=== PATIENT | female | born 1960 | race Caucasian/White ===

== ENCOUNTER → 2017-03-01 | Outpatient (CLI) | payer OTHER ==
[2015-01-25 14:05] VITALS: BP 139/67
[~2017-03-01] MED LIST: ACET500T68 PO; CETI10TA22 PO; CHOL5000 PO; FAMO20TA5 PO; FOLI1TAB4 PO; GUAI-107 PO; HYDR-2679 PO; NAPR250T2 PO; NAPR375T3 PO; NORE5TAB3 PO; ONDA4TAB11 PO; PROG100C15 PO; TRIA1CAP3 PO; [UNRECOGNIZED DRUG - CODE] PO
--- NOTE | 2017-03-03 17:32 | CARD ---
APPROVED REPORT EXAM: Two-dimensional and M-mode echocardiogram with Doppler and color Doppler. Other Information Quality : Average Rhythm : NSR INDICATION Atrial Fibrillation 2D DIMENSIONS RVDd3.1 (2.9-3.5cm)Left Atrium(2D)3.1 (1.6-4.0cm) IVSd1.0 (0.7-1.1cm)Aortic Root(2D)2.7 (2.0-3.7cm) LVDd4.6 (3.9-5.9cm)LVOT Diameter2.0 (1.8-2.4cm) PWd1.0 (0.7-1.1cm)LVDs3.1 (2.5-4.0cm) FS (%) 29.9 %SV60.2 ml LVEF(%)60.4 (>50%) Aortic Valve AoV Peak Elijah.90.0cm/sAoV VTI16.1cm AO Peak GR.3.2mmHgLVOT Peak Elijah.96.0cm/s LVOT VTI 18.32cmAO Mean GR.2mmHg LIOR (VMAX)3.63xo3LMP (VTI)3.65cm2 Mitral Valve MV E Dezindrt93.5cm/sMV DECEL NJVV230dd MV A Uymgvitp69.7cm/sMV E Mean Gr.1mmHg MV QDC02wmG/A Ratio1.2 MV A Djwvkuiq689ucUHQ (PHT)4.51cm2 TDI E/Lateral E'4.0E/Medial E'5.1 Pulmonary Valve PV Peak Rkflcfnb95.2cm/sPV Peak Grad.2mmHg RVOT VTI12.2cm Tricuspid Valve TR P. Iizttqah559ry/sRAP GNKVHYBT7dtJm TR Peak Gr.17quOhLVHD57ycMi Pulmonary Vein S1 Mdqbeuem88.8cm/sD2 Eghkiijt24.1cm/s LEFT VENTRICLE The left ventricle is normal size. There is normal left ventricular wall thickness. Left ventricle sy stolic function is normal. The Ejection Fraction is 55-60%. There is normal LV segmental wall motion. The left ventricular diastolic function and filling is normal for age. There is no ventricular septa l defect visualized. RIGHT VENTRICLE The right ventricle is normal size. The right ventricular systolic function is normal. ATRIA The left atrium size is normal. The right atrium size is normal. The interatrial septum is intact wit h no evidence for an atrial septal defect or patent foramen ovale as noted on 2-D or Doppler imaging. AORTIC VALVE The aortic valve is normal in structure and function. The aortic valve is trileaflet. Doppler and Col or Flow revealed no significant aortic regurgitation. There is no significant aortic valvular stenosi s. MITRAL VALVE The mitral valve leaflets are thickened. A slight mitral valve prolapse is present of the anterior mi tral valve leaflet. There is no mitral valve stenosis. Doppler and Color Flow revealed no mitral valv e regurgitation noted. TRICUSPID VALVE The tricuspid valve is normal in structure and function. Doppler and Color Flow revealed trace tricus pid regurgitation. The PA pressure was estimated at 16 mmHg. There is no tricuspid valve stenosis. PULMONIC VALVE The pulmonic valve is not well visualized. Doppler and Color Flow revealed no pulmonic valvular regur gitation. There is no pulmonic valvular stenosis. GREAT VESSELS The aortic root is normal in size. Normal pulmonary venous flow (Doppler). The IVC is normal in size and collapses >50% with inspiration. PERICARDIAL EFFUSION There is no evidence of significant pericardial effusion. Critical Notification Critical Value: No <Conclusion> Left ventricle systolic function is normal. The Ejection Fraction is 55-60%. There is normal LV segmental wall motion. Doppler and Color Flow revealed trace tricuspid regurgitation. The PA pressure was estimated at 16 mmHg. There is no evidence of significant pericardial effusion.
== END | disposition home or self-care (01) ==
LOC: ECHO 10:01
PROVIDERS: ATTEND Internal Medicine Cardiovascular Disease
DX: I07.1 Rheumatic tricuspid insufficiency (principal)
CPT/HCPCS: 93306

== ENCOUNTER → 2017-04-25 | Outpatient (CLI) | payer OTHER ==
[2015-01-25 14:05] VITALS: BP 139/67
[~2017-04-25] MED LIST changes: -GUAI-107 PO; +GUAI-108 PO; +NAPR-695 PO; -NAPR250T2 PO; +NAPR250T6 PO; -NAPR375T3 PO
--- NOTE | 2017-04-25 09:59 | RAD ---
MRCP, 04/25/2017: History: Pancreatitis Imaging was performed in axial and coronal planes utilizing a variety of sequences including T2 weighted, fat suppressed T2 weighted and opposed phase gradient echo sequences. Heavily T2 weighted 2-D and 3-D MRCP sequences were also performed with 3-D reconstructions produced. The gallbladder is surgically absent. No bile duct dilatation is seen. No filling defect is seen in the common duct to suggest a calculus. The pancreatic ducts are of normal caliber. There is a separate small pancreatic duct in the posterior aspect of the pancreatic head inserted into the distal common bile duct at the ampulla. The main pancreatic duct appears to have a separate connection to the duodenum. The appearance is that of pancreas divisum. No pancreatic mass is evident. There is a 13 mm cyst in the anterior aspect of the left lobe of the liver. The liver is otherwise unremarkable. IMPRESSION: 1. Status post cholecystectomy. 2. No biliary tract abnormality is detected. 3. Pancreas divisum. 4. Small hepatic cyst.
== END | disposition home or self-care (01) ==
LOC: MRI 08:23
PROVIDERS: ATTEND Internal Medicine Gastroenterology
DX: K85.90 Acute pancreatitis without necrosis or infection, unspecified (principal); Z90.49 Acquired absence of other specified parts of digestive tract; K76.89 Other specified diseases of liver
CPT/HCPCS: 74181

== ENCOUNTER → 2017-05-21 | Day surgery (SDC) | payer OTHER ==
[~2017-05-21] MED LIST changes: +DILT120C2 PO; +IV RINGERS,LACTATED 1000ML 1,000 ML IV SCH; +LIDOCAINE 1% PF 2 ML VIAL. ID PRN; +LIDOCAINE 2% PF Vial for OR 5 ML VIAL. ONE; +MIDAZOLAM HCL/PF 2 MG/2 ML VIAL. IV PRN; +PROPOFOL 20 ML IV ONE; +PROPOFOL 40 ML IV ONE; +fentaNYL PF VIAL 100 MCG/2 ML VIAL IV PRN
[2017-05-21 17:15] VITALS: BP 134/74
== END | disposition home or self-care (01) ==
LOC: ENDOS 15:21
PROVIDERS: ATTEND Internal Medicine Gastroenterology
DX: Z12.11 Encounter for screening for malignant neoplasm of colon (principal); K57.30 Diverticulosis of large intestine without perforation or abscess without bleeding; K64.0 First degree hemorrhoids; K29.50 Unspecified chronic gastritis without bleeding; I48.91 Unspecified atrial fibrillation; Z90.49 Acquired absence of other specified parts of digestive tract; Z88.0 Allergy status to penicillin; Z88.2 Allergy status to sulfonamides; Z88.8 Allergy status to other drugs, medicaments and biological substances; Z91.040 Latex allergy status
CPT/HCPCS: 43235; 45378; J2704; J2001

== ENCOUNTER → 2017-11-06 | Outpatient (CLI) | payer OTHER | END | disposition home or self-care (01) | LOC: KCIC MRI 10:57 | DX: M48.061 Spinal stenosis, lumbar region without neurogenic claudication (principal); M25.78 Osteophyte, vertebrae | CPT/HCPCS: 72148; 72195 ==

== ENCOUNTER → 2019-01-22 | Outpatient (CLI) | payer OTHER ==
[2017-05-21 17:15] VITALS: BP 134/74
[~2019-01-22] MED LIST changes: -IV RINGERS,LACTATED 1000ML 1,000 ML IV SCH; -LIDOCAINE 1% PF 2 ML VIAL. ID PRN; -LIDOCAINE 2% PF Vial for OR 5 ML VIAL. ONE; -MIDAZOLAM HCL/PF 2 MG/2 ML VIAL. IV PRN; -PROPOFOL 20 ML IV ONE; -PROPOFOL 40 ML IV ONE; -fentaNYL PF VIAL 100 MCG/2 ML VIAL IV PRN
--- NOTE | 2019-01-22 13:42 | KCIC ---
MRI of the brain without contrast 01/22/2019 Clinical History: Essential tremor. Increasing headaches and hand tremors. Technique: Unenhanced T1-weighted sagittal and axial, T2-weighted axial and coronal and FLAIR, gradient echo and diffusion-weighted axial images of the brain were obtained. Findings: Comparison is made to patient's CT scan of the head dated 03/05/2018. The ventricles and sulci are within normal limits in size and configuration. No area of significant abnormal signal intensity is seen involving the brain parenchyma. No extra-axial fluid collection is seen. There is no MRI evidence of acute ischemia/infarction. Mild mucosal thickening in seen scattered throughout the paranasal sinuses. A 8 mm mucous retention cyst is seen involving the right maxillary sinus. Normal flow voids are seen within the major vascular structures surrounding the brain parenchyma. Impression: 1. Negative MRI of the brain. 2. Mild paranasal sinus and mastoid disease. Electronically signed by: Abiodun Miller MD (01/22/2019 1:39 PM) [facility]
== END | disposition home or self-care (01) ==
LOC: KCIC MRI 09:25
PROVIDERS: ATTEND Psychiatry & Neurology Neurology with Special Qualifications in Child Neurology
DX: J34.1 Cyst and mucocele of nose and nasal sinus (principal)
CPT/HCPCS: 70551

== ENCOUNTER → 2019-08-26 | Outpatient (CLI) | payer OTHER ==
[2017-05-21 17:15] VITALS: BP 134/74
[~2019-08-26] MED LIST changes: -CETI10TA22 PO; +CETI10TA24 PO; +ONDA-84 PO; -ONDA4TAB11 PO; +REGADENOSON 0.4 MG/5 ML DISP.SYRIN. IV ONE
--- NOTE | 2019-08-26 14:41 | RAD ---
MR#: [id number] Date of Study: 08/26/2019 Ordering Physician: ALEISHA INTERIANO, Referring Physician: YARIEL ROSENTHAL Tech: SONDRA Irving, ARRT (R) (N) APPROVED REPORT Test Type: Exercise Stress Nurse/Tech: Luke Park RN Test Indications: chest pain Cardiac History: clean cath 2004, HTN Medications: See Electronic Medical Record Medical History: See Electronic Medical Record Resting ECG: SR Resting Heart Rate: 73 bpm Resting Blood Pressure: 112/65mmHg Pretest Chest Pain: None Nurse/Tech Notes Lungs CTA, S1S2 Consent: The procedure was explained to the patient in lay terms. Informed consent was witnessed. Etienne eout was entered into [employer]. History and Stress Test performed by RT Sandra (R) (N) Stress Symptoms Dyspnea POST EXERCISE Reason for Termination: Reached target heart rate Target HR: 138 Max HR: 140 bpm Exercise duration: 6:00 min:sec, 3 Stage Max Blood Pressure: 145/72mmHg Blood Pressure response to exercise: Normal blood pressure response during stress. Heart Rate response to exercise: normal response Chest Pain: No. Arrhythmia: No. ST Change: No. INTERPRETATION Stress EKG Conclusion: Baseline EKG showed sinus rhythm. No ischemic changes at peak stress. No arr hythmias. Imaging Protocol IMAGE PROTOCOL: Rest Tc-99m/stress Tc-99m 1 day Rest: Stress: Viability: Radiopharm.Tc99m ZrbitoqnoQz13x Sestamibi Nsxo26aTf 33mCi Img Date 08/26/2019 08/26/2019 Inj-Img [id number]. 60min. Rest Admin Site:IV - Left AntecubitalAdministrator:RT Sandra (Ravi)(N) Stress Admin Site: IV - Left AntecubitalAdministrator: RT Sandra (Ravi)(N) STRESS DATA End Diast. Vol.93.0mlAv. Heart Rate81.0bpm End Syst. Vol.26.0mlCO Index BSA0.0L/min Myocardial Dnwh602.0gEject. Nfflqtii21.0% Stress Rates Pk. Fill Rate2.98EDV/secLVtime Pk. Fill 136.34msec Pk. Empty Rate4.26ESV/secLVtime Pk. Iarhh364.92msec 1/3 Pk. Fill1.40EDV/sec Stress Scores Regional WT0.00Summed WT0.00 Regional WM0.00Summed WM1.00 Study quality was good. Left Ventricular size was Normal at Rest and Stress. Lung uptake was . Left Ventricular ejection fraction is 72%. The rest and stress images show normal perfusion, normal contraction and thickening. LV Perf. Quant 17 Seg. SSS1.00 17 Seg. SRS5.00 17 Seg. SDS0.00 Stress Defect Extent (% LAD)0.00Rest Defect Extent (% LAD)6.30Rev. Defect Extent (% LAD)0.00 Stress Defect Extent (% LCX) 0.00Rest Defect Extent (% LCX)5.00Rev. Defect Extent (% LCX)0.00 Stress Defect Extent (% RCA)0.00Rest Defect Extent (% RCA)1.10Rev. Defect Extent (% RCA)0.00 Stress Defect Extent (% CARMEN)0.00Rest Defect Extent (% CARMEN)5.70Rev. Defect Extent (% CARMEN)0.00 Conclusion 1. Treadmill exercise cardioisotope stress test did not show any evidence of ischemia or infarct. 2. Normal left ventricular systolic function with ejection fraction calculated at 72%. 3. Low risk for cardiac events. Signed by : Hieu Cox, Electronically Approved : 08/26/2019 14:40:57
== END | disposition home or self-care (01) ==
LOC: NM 09:37
PROVIDERS: ATTEND Internal Medicine Cardiovascular Disease
DX: R07.89 Other chest pain (principal)
CPT/HCPCS: 78452; 93017; A9500